=== PATIENT | female | born 1985 | race Two or more races ===

== ENCOUNTER 2020-06-22 12:00 | Inpatient (IN) | payer OTHER ==
[~2020-06-22] VITALS: Ht 170.2 cm; Wt 3.6 kg
[2020-06-28] MEDS ORDERED: PRENATABS RX T1 EACH PO (12:10)
== END 2020-07-01 12:02 | DRG 788 ==
LOC: OB/GYN 06-28 11:48 → LDR 06-28 11:48 → OB/GYN 06-28 12:00
PROVIDERS: ADMIT Obstetrics & Gynecology Maternal & Fetal Medicine; ATTEND Obstetrics & Gynecology Maternal & Fetal Medicine
PROC: 4A1HXFZ Monitoring of Products of Conception, Cardiac Rhythm, External Approach (ICD-10-PCS; 2020-06-28)
PROC: 10D00Z1 Extraction of Products of Conception, Low, Open Approach (ICD-10-PCS; principal; 2020-06-29 12:30)
DX: O76 Abnormality in fetal heart rate and rhythm complicating labor and delivery (principal); O99.214 Obesity complicating childbirth; O62.0 Primary inadequate contractions; Z3A.39 39 weeks gestation of pregnancy; Z37.0 Single live birth; Z20.828 Contact with and (suspected) exposure to other viral communicable diseases